=== PATIENT | male | born 1985 | race American Indian/Alaskan Native ===

== ENCOUNTER 2021-03-31 11:12 | Emergency (ER) | payer OTHER ==
[2021-03-31 12:30] VITALS: BP 178/124
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
== END 2021-03-31 13:22 | disposition home or self-care (01) ==
LOC: ED 11:12
DX: M25.511 Pain in right shoulder (principal); M54.50 Low back pain, unspecified; Z91.14 Patient's other noncompliance with medication regimen; Z79.899 Other long term (current) drug therapy
CPT/HCPCS: 99282

== ENCOUNTER 2021-05-23 20:06 | Emergency (ER) | payer SELFPAY ==
--- NOTE | 2021-05-23 22:31 | Emergency Department Report ---
ED General Adult HPI - General Chief complaint: High BP Stated complaint: HIGH BP Source: patient Mode of arrival: Ambulatory Limitations: No Limitations - History of Present Illness Initial comments: Patient is a 36-year-old -Sudanese male with a history of hypertension who is noncompliant with medications presented to the ED via EMS for evaluation of his blood pressure. Patient stated that about 24 hours ago he felt headache and his blood pressure was extremely high with a systolic of over 200. Patient states that he took the blood pressure medication that was previously prescribed for him and for which she has been noncompliant and felt better. Patient however stated that he was scared to go to sleep because of the hypertension, and decided come to the ED today for evaluation. Patient denies chest pain, headache, dizziness, syncope, diaphoresis, nausea and vomiting, palpitation, abdominal pain, neck pain, back pain, fever and chills or change in vision. MD Complaint: Elevated blood pressure -: Sudden, hour(s) (24) Location: head Radiation: non-radiation Severity scale (0 -10): 0 Consistency: intermittent Improves with: medication Worsens with: none Associated Symptoms: denies other symptoms. denies: confusion, chest pain, cough, diaphoresis, fever/chills, headaches, loss of appetite, malaise, nausea/vomiting, rash, seizure, shortness of breath, syncope, weakness Treatments Prior to Arrival: none - Related Data Previous Rx's Medication Instructions Recorded Last Taken Type Naproxen 500 mg PO BID PRN #14 tab 03/31/21 Unknown Rx amLODIPine 5 mg PO DAILY 30 Days #30 tab 03/31/21 Unknown Rx methocarbamoL [Methocarbamol] 750 mg PO TID PRN #20 tab 03/31/21 Unknown Rx Metoprolol [Lopressor] 25 mg PO BID #60 tablet 05/24/21 Unknown Rx Allergies Allergy/AdvReac Type Severity Reaction Status Date / Time No Known Allergies Allergy Verified 05/23/21 21:45 ED Review of Systems ROS: Stated complaint: HIGH BP Other details as noted in HPI Constitutional: other (Elevated blood pressure). denies: chills, fever Eyes: denies: eye pain, eye discharge, vision change ENT: denies: ear pain, throat pain Respiratory: denies: cough, shortness of breath, wheezing Cardiovascular: denies: chest pain, palpitations Endocrine: no symptoms reported Gastrointestinal: denies: abdominal pain, nausea, diarrhea Genitourinary: denies: urgency, dysuria Musculoskeletal: denies: back pain, joint swelling, arthralgia Skin: denies: rash, lesions Neurological: denies: headache, weakness, paresthesias Psychiatric: denies: anxiety, depression Hematological/Lymphatic: denies: easy bleeding, easy bruising ED Past Medical Hx - Past Medical History Previous Medical History?: Yes Hx Hypertension: Yes - Surgical History Past Surgical History?: No - Medications Home Medications: Home Medications Medication Instructions Recorded Confirmed Last Taken Type Naproxen 500 mg PO BID PRN #14 tab 03/31/21 Unknown Rx amLODIPine 5 mg PO DAILY 30 Days #30 tab 03/31/21 Unknown Rx methocarbamoL [Methocarbamol] 750 mg PO TID PRN #20 tab 03/31/21 Unknown Rx Metoprolol [Lopressor] 25 mg PO BID #60 tablet 05/24/21 Unknown Rx ED Physical Exam - General Limitations: No Limitations General appearance: alert, in no apparent distress - Head Head exam: Present: atraumatic, normocephalic, normal inspection - Eye Eye exam: Present: normal appearance, PERRL, EOMI Pupils: Present: normal accommodation - ENT ENT exam: Present: normal exam, normal orophraynx, mucous membranes moist, TM's normal bilaterally, normal external ear exam - Neck Neck exam: Present: normal inspection, full ROM - Respiratory Respiratory exam: Present: normal lung sounds bilaterally. Absent: respiratory distress, wheezes, rales, rhonchi, chest wall tenderness, accessory muscle use, decreased breath sounds - Cardiovascular Cardiovascular Exam: Present: regular rate, normal rhythm, normal heart sounds. Absent: systolic murmur, diastolic murmur, rubs, gallop - GI/Abdominal GI/Abdominal exam: Present: soft, normal bowel sounds. Absent: tenderness, guarding, rebound, hyperactive bowel sounds, hypoactive bowel sounds, organomegaly - Extremities Exam Extremities exam: Present: normal inspection, full ROM, normal capillary refill. Absent: tenderness - Back Exam Back exam: Present: normal inspection, full ROM. Absent: tenderness, CVA tenderness (R), CVA tenderness (L), muscle spasm, paraspinal tenderness - Neurological Exam Neurological exam: Present: alert, oriented X3, CN II-XII intact, normal gait, reflexes normal - Psychiatric Psychiatric exam: Present: normal affect, normal mood, anxious - Skin Skin exam: Present: warm, dry, intact, normal color. Absent: rash ED Course Vital Signs 05/23/21 05/23/21 21:40 23:08 Temperature 98.3 F Pulse Rate 95 H 80 Respiratory 14 14 Rate Blood Pressure 145/101 152/103 [Right] O2 Sat by Pulse 99 97 Oximetry ED Medical Decision Making - Medical Decision Making This is a 36-year-old -Sudanese male with a history of hypertension who is noncompliant with medications presented to the ED via EMS for evaluation of his blood pressure. Patient stated that about 24 hours ago he felt headache and his blood pressure was extremely high with a systolic of over 200. Patient states that he took the blood pressure medication that was previously prescribed for him and for which she has been noncompliant and felt better. Patient [facility] stated that he was scared to go to sleep because of the hypertension, and decided come to the ED today for evaluation. In the ED, patient is alert and oriented x3 and is not in any distress. Patient's vital signs are stable. Patient was discharged home and advised to continue taking his previously prescribed antihypertensive medications and to follow-up with his primary care physician in 7 to 10 days for reevaluation. Patient was advised return to the ED immediately if symptoms get worse. - Differential Diagnosis Uncontrolled hypertension; noncompliance of medication; anxiety Critical care attestation.: If time is entered above; I have spent that time in minutes in the direct care of this critically ill patient, excluding procedure time. ED Disposition Clinical Impression: Uncontrolled hypertension, stage 1, Anxiety as acute reaction to exceptional stress, Noncompliance with medication regimen Disposition: 01 HOME / SELF CARE / HOMELESS Is pt being admited?: No Does the pt Need Aspirin: No Condition: Stable Instructions: Hypertension, Adult, Abfo-vn-Nuit, Hypertension (ED) Additional Instructions: Take your regular medications as previously prescribed, drink plenty of fluids and follow-up with your primary care physician in 7 to 10 days for reevaluation. Return to the ED immediately if symptoms get worse. Referrals: [facility] [Provider Group] - 7-10 days Time of Disposition: 22:31 Print Language: PORTUGUESE
[2021-05-23 23:10] VITALS: BP 152/103
== END 2021-05-23 23:33 | disposition home or self-care (01) ==
LOC: ED 20:06
DX: I10 Essential (primary) hypertension (principal); F41.1 Generalized anxiety disorder; F43.0 Acute stress reaction; Z91.14 Patient's other noncompliance with medication regimen; Z79.899 Other long term (current) drug therapy
CPT/HCPCS: 99282

== ENCOUNTER 2021-05-24 06:01 | Emergency (ER) | payer SELFPAY ==
--- NOTE | 2021-05-24 08:10 | Emergency Department Report ---
ED General Adult HPI - General Chief complaint: High BP Stated complaint: HIGH BP/DIZZINESS Time Seen by Provider: 05/24/21 07:54 Source: patient Mode of arrival: Ambulatory Limitations: No Limitations - History of Present Illness Initial comments: 36-year-old black male with a past medical history of hypertension presents to the emergency department for evaluation of elevated blood pressure and dizziness. He states that he has had the symptoms for the last few days and they have been intermittent and now he is having shortness of breath and nausea as well. He states that he did not taken his blood pressure medications in a while and then he started back a couple of days ago. He denies chest pain and diaphoresis. Patient was seen here yesterday for same. MD Complaint: Dizziness and elevated blood pressure -: Gradual, days(s) (2-3) Severity scale (0 -10): 0 Consistency: intermittent Associated Symptoms: nausea/vomiting, shortness of breath. denies: confusion, chest pain, cough, diaphoresis, fever/chills, headaches, loss of appetite, malaise, rash, seizure, syncope, weakness - Related Data Previous Rx's Medication Instructions Recorded Last Taken Type Naproxen 500 mg PO BID PRN #14 tab 03/31/21 Unknown Rx amLODIPine 5 mg PO DAILY 30 Days #30 tab 03/31/21 Unknown Rx methocarbamoL [Methocarbamol] 750 mg PO TID PRN #20 tab 03/31/21 Unknown Rx Metoprolol [Lopressor] 25 mg PO BID #60 tablet 05/24/21 Unknown Rx Allergies Allergy/AdvReac Type Severity Reaction Status Date / Time No Known Allergies Allergy Verified 05/23/21 21:45 ED Review of Systems ROS: Stated complaint: HIGH BP/DIZZINESS Other details as noted in HPI Comment: All other systems reviewed and negative Constitutional: denies: chills, fever Eyes: denies: vision change ENT: denies: congestion Respiratory: shortness of breath. denies: cough, SOB with exertion, SOB at rest, wheezing Cardiovascular: denies: chest pain, palpitations, dyspnea on exertion, o rthopnea, edema, syncope, paroxysmal nocturnal dyspnea Gastrointestinal: nausea. denies: abdominal pain, vomiting, diarrhea, hematemesis, melena, hematochezia Genitourinary: denies: urgency, dysuria, frequency, hematuria, discharge Musculoskeletal: denies: back pain Skin: denies: rash, lesions Neurological: denies: headache, weakness, numbness, paresthesias, confusion, ab normal gait, vertigo ED Past Medical Hx - Past Medical History Previous Medical History?: Yes Hx Hypertension: Yes - Surgical History Past Surgical History?: No - Medications Home Medications: Home Medications Medication Instructions Recorded Confirmed Last Taken Type Naproxen 500 mg PO BID PRN #14 tab 03/31/21 Unknown Rx amLODIPine 5 mg PO DAILY 30 Days #30 tab 03/31/21 Unknown Rx methocarbamoL [Methocarbamol] 750 mg PO TID PRN #20 tab 03/31/21 Unknown Rx Metoprolol [Lopressor] 25 mg PO BID #60 tablet 05/24/21 Unknown Rx ED Physical Exam - General Limitations: No Limitations General appearance: alert, in no apparent distress - Head Head exam: Present: atraumatic, normocephalic - Eye Eye exam: Present: normal appearance. Absent: conjunctival injection - Neck Neck exam: Present: normal inspection, full ROM. Absent: tenderness, lymphadenopathy - Respiratory Respiratory exam: Present: normal lung sounds bilaterally. Absent: respiratory distress, wheezes, rales, rhonchi, stridor, chest wall tenderness - Cardiovascular Cardiovascular Exam: Present: tachycardia, normal heart sounds - GI/Abdominal GI/Abdominal exam: Present: soft, normal bowel sounds. Absent: distended, tenderness, guarding, rebound, rigid - Extremities Exam Extremities exam: Present: normal inspection, normal capillary refill. Absent: pedal edema, joint swelling, calf tenderness - Back Exam Back exam: Present: normal inspection. Absent: tenderness, CVA tenderness (R), CVA tenderness (L), vertebral tenderness - Neurological Exam Neurological exam: Present: alert, oriented X3, normal gait, reflexes normal. Absent: motor sensory deficit - Psychiatric Psychiatric exam: Present: normal affect, normal mood - Skin Skin exam: Present: warm, dry, intact, normal color ED Course Vital Signs 05/24/21 05/24/21 05/24/21 06:21 09:41 10:08 Temperature 98.6 F Pulse Rate 103 H 82 75 Respiratory 16 16 Rate Blood Pressure 168/109 Blood Pressure 163/105 162/108 [Right] O2 Sat by Pulse 98 99 Oximetry - Reevaluation(s) Reevaluation #1: 05/24/21 09:45 Denies chest pain, shortness of breath, nausea, vomiting, dizziness, and diaphoresis at this time. ED Medical Decision Making - Lab Data Result diagrams: 05/24/21 08:10 05/24/21 08:10 - EKG Data Interpretation: no acute changes 05/24/21 10:27 Noted to have some ST depression likely demand ischemia from elevated BP and heart rate. - Radiology Data Radiology results: report reviewed interpreted by me: Chest x-ray: FINDINGS: Support devices: None. Heart: Within normal limits. Lungs/pleura: No acute air space or interstitial disease. No pneumothorax. Additional findings: None. IMPRESSION: No acute findings. - Medical Decision Making 36-year-old black male with a past medical history of hypertension presents to the emergency department for evaluation of elevated blood pressure and dizziness. He states that he has had the symptoms for the last few days and they have been intermittent and now he is having shortness of breath and nausea as well. He states that he did not taken his blood pressure medications in a while and then he started back a couple of days ago. He denies chest pain and diaphoresis. Patient was seen here yesterday for same. No acute ischemic changes noted on EKG, but patient noted to have some ST depression likely related to demand ischemia from persistent hypertension and elevated heart rate. Patient will be given 25 mg of Lopressor p.o. in ED and started on Lopressor 25 mg p.o. twice daily at home and advised to follow-up with cardiology. Troponin within normal limits, chest x-ray without any acute findings, and no gross abnormalities noted on labs. Patient continues to deny chest pain, and heart score equal to 2, so patient will be discharged home to follow-up with cardiology. Plan of care reviewed with patient and he verbalized understanding of and agreement with. Critical care attestation.: If time is entered above; I have spent that time in minutes in the direct care of this critically ill patient, excluding procedure time. ED Disposition Clinical Impression: Hypertension Qualifiers: Hypertension type: unspecified Qualified Code(s): I10 - Essential (primary) hypertension Disposition: 01 HOME / SELF CARE / HOMELESS Is pt being admited?: No Does the pt Need Aspirin: No Condition: Stable Instructions: Hypertension, Adult, Styx-[id number]-Vkva, Managing Your Hypertension, Hypertension (ED) Additional Instructions: Take medications as prescribed. Follow-up with cardiology or primary care for further evaluation and management. Return to the emergency department for any concerning symptoms. Prescriptions: Metoprolol [Lopressor] 25 mg PO BID #60 tablet Referrals: MAURICIO DE LUNA MD [Primary Care Provider] - 3-5 Days Forms: Work/School Release Form(ED) Time of Disposition: 09:48 HEART Score - HEART Score History: Slightly suspicious EKG: Non-specific Age: < 45 Risk factors: 1-2 risk factors Troponin: Troponin T < 0.010 ng/mL (0.00-0.029) 05/24/21 08:10 Troponin: < normal limit HEART Score: 2 - Critical Actions Critical Actions: 0-3 pts:0.9-1.7%risk of adverse cardiac event.Candidate for discharge
[2021-05-24] MEDS ORDERED: METOPROLOL TARTRATE 5 MG/5 ML INJ IV ONE (08:29)
--- NOTE | 2021-05-24 08:41 | XRay Report ---
CHEST 2 VIEWS INDICATION: dizziness. COMPARISON: none FINDINGS: Support devices: None. Heart: Within normal limits. Lungs/pleura: No acute air space or interstitial disease. No pneumothorax. Additional findings: None. IMPRESSION: No acute findings. Signer Name: Elier Gibson Jr, MD Signed: 05/24/2021 8:37 AM Workstation Name: [id number]
[2021-05-24 08:44] LABS: Hematocrit 41.1 % (35.5-45.6); Hemoglobin 13.8 gm/dl (11.8-15.2); Mean Corpuscular HGB Conc 34 % (32-34); Mean Corpuscular Volume 92 fl (84-94); Platelet Count 267 K/mm3 (140-440); Red Blood Count 4.46 M/mm3 (3.65-5.03); Red Cell Distribution Width 12.8 % (13.2-15.2)
[2021-05-24 08:52] LABS: Alanine Aminotransferase 77 units/L (7-56); Albumin 4.3 g/dL (3.9-5); BUN/Creatinine Ratio 8; Blood Urea Nitrogen 9 mg/dL (9-20); Calcium 9.4 mg/dL (8.4-10.2); Hemolysis Index 9
[2021-05-24] MEDS ORDERED: METOPROLOL TARTRATE 50 MG TAB PO ONE (09:31)
[2021-05-24 10:09] VITALS: BP 162/108
--- NOTE | 2021-05-27 19:45 | Electrocardiograph Report ---
[facility] Test Date: 2021-05-24 Test Time: 08:21:56 Pat Name: ERIC TIMMONS Department: Room: Gender: M [employer]: [place] : 1985 Requested By: LUKAS HOFFMAN Order Number: [id number] Reading MD: Chacha Mancilla Measurements Intervals [place] Rate: 76 P: 73 WV: 125 QRS: 66 QRSD: 78 T: 183 QT: 419 QTc: 472 Interpretive Statements Sinus rhythm LAE, consider biatrial enlargement LVH with secondary repolarization abnormality Consider anterolateral ischemia No previous ECG available for comparison Electronically Signed On 05-27-2021 19:45:05 EDT by Chacha Mancilla
== END 2021-05-24 10:08 | disposition home or self-care (01) ==
LOC: ED 06:01
DX: I10 Essential (primary) hypertension (principal)
CPT/HCPCS: 36415; 71046; 80053; 84484; 85027; 93005; 99283; 99284

== ENCOUNTER 2021-06-16 19:05 | Emergency (ER) | payer SELFPAY ==
[2021-06-16] MEDS ORDERED: METOPROLOL TARTRATE 5 MG/5 ML INJ IV ONE (20:17)
[2021-06-16 20:34] LABS: Basophils % (Auto) 0.6 % (0.0-1.8); Eosinophils # (Auto) 0.3 K/mm3 (0.0-0.4); Eosinophils % (Auto) 3.7 % (0.0-4.3); Hematocrit 39.5 % (35.5-45.6); Hemoglobin 13.1 gm/dl (11.8-15.2); Lymphocytes # (Auto) 2.6 K/mm3 (1.2-5.4); Lymphocytes % (Auto) 36.8 % (13.4-35.0); Mean Corpuscular HGB Conc 33 % (32-34); Mean Corpuscular Volume 93 fl (84-94); Monocytes # (Auto) 0.4 K/mm3 (0.0-0.8); Monocytes % (Auto) 6.4 % (0.0-7.3); Platelet Count 302 K/mm3 (140-440); Red Blood Count 4.27 M/mm3 (3.65-5.03); Red Cell Distribution Width 12.4 % (13.2-15.2)
[2021-06-16 20:55] LABS: Creatine Kinase MB 4.3 ng/mL (0.0-4.0)
[2021-06-16 20:57] LABS: Alanine Aminotransferase 31 units/L (7-56); Albumin 4.2 g/dL (3.9-5); BUN/Creatinine Ratio 9; Blood Urea Nitrogen 11 mg/dL (9-20); Calcium 8.7 mg/dL (8.4-10.2); Hemolysis Index 3
--- NOTE | 2021-06-16 20:57 | XRay Report ---
XR chest 1V ap INDICATION / CLINICAL INFORMATION: Dyspnea COMPARISON: 05/24/2021 FINDINGS: SUPPORT DEVICES: None. HEART / MEDIASTINUM: No significant abnormality. LUNGS / PLEURA: Lungs are clear. Costophrenic sulci are sharp. No pneumothorax. ADDITIONAL FINDINGS: No significant additional findings. IMPRESSION: 1. No acute findings. Signer Name: Seamus Mathias MD Signed: 06/16/2021 8:53 PM Workstation Name: [id number]
[2021-06-16 22:06] LABS: Bilirubin,Urine NEG (Negative); Blood,Urine NEG (Negative); Color,Urine Yellow (Yellow)
[2021-06-16 22:15] LABS: RBC,Urine < 1.0 /HPF (0.0-6.0); WBC,Urine < 1.0 /HPF (0.0-6.0)
[2021-06-16 22:16] LABS: Amphetamine Screen,Urine Negative; Benzodiazepines Screen,Urine Negative; Cannabinoid Screen,Urine Negative; Methadone Screen,Urine Negative; Opiate Screen,Urine Negative
[2021-06-16 22:52] LABS: Cocaine Screen,Urine Negative
--- NOTE | 2021-06-16 23:14 | Emergency Department Report ---
ED General Adult HPI - General Chief complaint: High BP Stated complaint: HBP Time Seen by Provider: 06/16/21 20:11 Source: EMS Mode of arrival: Ambulatory Limitations: No Limitations - History of Present Illness Initial comments: pt has been taking his uncle's blood pressure medication that is not working, pt c/o dizziness, feeling "light headed" upon standing, denies MORRISON - pt ambulatory to EMS, EMS states possible ETOH -: Gradual, days(s) Severity scale (0 -10): 7 Improves with: none, immobilization Associated Symptoms: denies: denies other symptoms, confusion, chest pain, cough - Related Data Previous Rx's Medication Instructions Recorded Last Taken Type Naproxen 500 mg PO BID PRN #14 tab 03/31/21 Unknown Rx amLODIPine 5 mg PO DAILY 30 Days #30 tab 03/31/21 Unknown Rx methocarbamoL [Methocarbamol] 750 mg PO TID PRN #20 tab 03/31/21 Unknown Rx Metoprolol [Lopressor] 25 mg PO BID #60 tablet 05/24/21 Unknown Rx amLODIPine 10 mg PO DAILY #30 tab 06/16/21 Unknown Rx Allergies Allergy/AdvReac Type Severity Reaction Status Date / Time No Known Allergies Allergy Verified 05/23/21 21:45 ED Review of Systems ROS: Stated complaint: HBP Other details as noted in HPI Constitutional: denies: chills, fever Eyes: denies: eye pain, eye discharge, vision change ENT: denies: ear pain, throat pain Respiratory: denies: cough, shortness of breath, wheezing Cardiovascular: denies: chest pain, palpitations Endocrine: no symptoms reported Gastrointestinal: denies: abdominal pain, nausea, diarrhea Genitourinary: denies: urgency, dysuria Musculoskeletal: denies: back pain, joint swelling, arthralgia Skin: denies: rash, lesions Neurological: denies: headache, weakness, paresthesias Psychiatric: denies: anxiety, depression Hematological/Lymphatic: denies: easy bleeding, easy bruising ED Past Medical Hx - Past Medical History Hx Hypertension: Yes - Social History Smoking Status: Current Every Day Smoker Substance Use Type: None - Medications Home Medications: Home Medications Medication Instructions Recorded Confirmed Last Taken Type Naproxen 500 mg PO BID PRN #14 tab 03/31/21 Unknown Rx amLODIPine 5 mg PO DAILY 30 Days #30 tab 03/31/21 Unknown Rx methocarbamoL [Methocarbamol] 750 mg PO TID PRN #20 tab 03/31/21 Unknown Rx Metoprolol [Lopressor] 25 mg PO BID #60 tablet 05/24/21 Unknown Rx amLODIPine 10 mg PO DAILY #30 tab 06/16/21 Unknown Rx ED Physical Exam - General Limitations: No Limitations General appearance: alert, in no apparent distress - Head Head exam: Present: atraumatic, normocephalic - Eye Eye exam: Present: normal appearance - ENT ENT exam: Present: mucous membranes moist - Neck Neck exam: Present: normal inspection - Respiratory Respiratory exam: Present: normal lung sounds bilaterally. Absent: respiratory distress - Cardiovascular Cardiovascular Exam: Present: regular rate, normal rhythm. Absent: systolic murmur, diastolic murmur, rubs, gallop - GI/Abdominal GI/Abdominal exam: Present: soft, normal bowel sounds - Rectal Rectal exam: Present: deferred - Extremities Exam Extremities exam: Present: normal inspection - Back Exam Back exam: Present: normal inspection - Neurological Exam Neurological exam: Present: alert, oriented X3 - Psychiatric Psychiatric exam: Present: normal affect, normal mood - Skin Skin exam: Present: warm, dry, intact, normal color. Absent: rash ED Course Vital Signs 06/16/21 06/16/21 06/16/21 19:35 20:46 21:01 Temperature 98.9 F Pulse Rate 107 H 85 87 Respiratory 16 16 31 H Rate Blood Pressure 173/118 132/89 Blood Pressure [Right] O2 Sat by Pulse 99 97 Oximetry 06/16/21 06/16/21 06/16/21 21:11 21:12 21:15 Temperature 99.0 F Pulse Rate 87 93 H Respiratory 32 H 32 H 26 H Rate Blood Pressure 141/91 Blood Pressure 132/89 [Right] O2 Sat by Pulse 100 100 97 Oximetry 06/16/21 06/16/21 06/16/21 21:31 21:45 21:55 Temperature 99.0 F Pulse Rate 92 H 88 88 Respiratory 20 24 24 Rate Blood Pressure 149/96 139/91 139/91 Blood Pressure [Right] O2 Sat by Pulse 97 97 97 Oximetry ED Medical Decision Making - Lab Data Result diagrams: 06/16/21 20:20 06/16/21 20:20 - EKG Data -: EKG Interpreted by Oh EKG shows normal: sinus rhythm Rate: normal - EKG Data Interpretation: LVH - Radiology Data Radiology results: pending, report reviewed, image reviewed - Medical Decision Making work up unremarkable , lopressor given BP is better , will increase is amlodpine to 10 mg a day Critical care attestation.: If time is entered above; I have spent that time in minutes in the direct care of this critically ill patient, excluding procedure time. ED Disposition Clinical Impression: Uncontrolled hypertension Disposition: HOME / SELF CARE / HOMELESS Is pt being admited?: No Does the pt Need Aspirin: No Condition: Stable Instructions: Hypertension (ED), Hypertension, Adult, Cgyp-on-Apxl
[2021-06-16 23:57] VITALS: BP 140/77
--- NOTE | 2021-06-17 10:49 | Electrocardiograph Report ---
[facility] Test Date: 2021-06-16 Test Time: 21:26:52 Pat Name: ERIC TIMMONS Department: Room: Gender: M Recovery Room Rn: CHANTEL : 1985 Requested By: YAS HOYT Order Number: [id number] Reading MD: Jamil Perea Measurements Intervals [place] Rate: 87 P: 59 DC: 139 QRS: 54 QRSD: 78 T: 205 QT: 365 QTc: 438 Interpretive Statements Sinus rhythm Atrial premature complex Probable left atrial enlargement Probable LVH with secondary repol abnrm Compared to ECG 05/24/2021 08:21:56 Atrial premature complex(es) now present Possible ischemia no longer present Electronically Signed On 06-17-2021 10:48:59 EDT by Jamil Perea
== END 2021-06-16 23:59 | disposition home or self-care (01) ==
LOC: ED 19:05
DX: I10 Essential (primary) hypertension (principal); F17.200 Nicotine dependence, unspecified, uncomplicated; Z79.899 Other long term (current) drug therapy
CPT/HCPCS: 36415; 71045; 80053; 80307; 81001; 82550; 82553; 83690; 84484; 85025; 93005; 96374; 99284

== ENCOUNTER 2021-07-12 00:33 | Emergency (ER) | payer SELFPAY ==
[2021-07-12] MEDS ORDERED: cloNIDine 0.2 MG TAB PO ONE (00:47)
--- NOTE | 2021-07-12 00:59 | Emergency Department Report ---
HPI - General Chief Complaint: High BP Time Seen by Provider: 07/12/21 00:45 - HPI HPI: Room 25 The patient is a 36-year-old male present with a chief complaint of "my blood pressure spiked up." The patient states he began to feel dizzy so he checked h is blood pressure and got a systolic of 214. Patient states he developed some numbness in his left upper extremity which has since improved and now only involves his left shoulder. Patient denied ever having chest pain or headache states he had dizziness. Patient states he has been intermittently compliant with his amlodipine. ED Past Medical Hx - Past Medical History Previous Medical History?: Yes Hx Hypertension: Yes - Surgical History Past Surgical History?: No - Family History Family history: no significant - Social History Smoking Status: Current Every Day Smoker (2/3 pack/day) Substance Use Type: None (Denies illicit drug use), Alcohol (Occasional) - Medications Home Medications: Home Medications Medication Instructions Recorded Confirmed Last Taken Type Naproxen 500 mg PO BID PRN #14 tab 03/31/21 Unknown Rx amLODIPine 5 mg PO DAILY 30 Days #30 tab 03/31/21 Unknown Rx methocarbamoL [Methocarbamol] 750 mg PO TID PRN #20 tab 03/31/21 Unknown Rx Metoprolol [Lopressor] 25 mg PO BID #60 tablet 05/24/21 Unknown Rx amLODIPine 10 mg PO DAILY #30 tab 06/16/21 Unknown Rx ED Review of Systems ROS: Stated complaint: HYPERTENSION Other details as noted in HPI Constitutional: no symptoms reported Eyes: denies: eye pain ENT: denies: throat pain Respiratory: no symptoms reported Cardiovascular: denies: chest pain Endocrine: no symptoms reported Gastrointestinal: denies: nausea, vomiting Genitourinary: denies: dysuria Musculoskeletal: denies: back pain Neurological: paresthesias, other (Dizziness). denies: headache Physical Exam - Physical Exam Vital Signs: Vital Signs 07/12/21 07/12/21 00:39 00:52 Temperature 98.5 F Pulse Rate 88 Respiratory 18 Rate Blood Pressure 173/116 173/116 O2 Sat by Pulse 99 Oximetry Physical Exam: GENERAL: The patient is well-developed well-nourished male lying on stretcher not appearing to be in acute distress. [] HEENT: Normocephalic. Atraumatic. Extraocular motions are intact. Patient has moist mucous membranes. NECK: Supple. No meningitic signs are noted. Trachea midline CHEST/LUNGS: Clear to auscultation. There is no respiratory distress noted. HEART/CARDIOVASCULAR: Regular. There is no tachycardia. There is no gallop rub or murmur. ABDOMEN: Abdomen is soft, nontender. Patient has normal bowel sounds. There is no abdominal distention. SKIN: There is no rash. There is no edema. There is no diaphoresis. NEURO: The patient is awake, alert, and oriented. The patient is cooperative. The patient has no focal neurologic deficits. The patient has normal speech. Cranial nerves II through XII grossly intact. GCS 15. Normal sensation to light touch equal bilaterally. NIHSS=0 MUSCULOSKELETAL: There is no evidence of acute injury. ED Course Vital Signs 07/12/21 07/12/21 00:39 00:52 Temperature 98.5 F Pulse Rate 88 Respiratory 18 Rate Blood Pressure 173/116 173/116 O2 Sat by Pulse 99 Oximetry - Reevaluation(s) Reevaluation #1: 07/12/21 04:07 Patient states he feels improved ED Medical Decision Making - Lab Data Result diagrams: 07/12/21 02:15 07/12/21 02:15 - EKG Data -: EKG Interpreted by Ar EKG shows normal: sinus rhythm Rate: normal (81 bpm) - EKG Data When compared to previous EKG there are: no significant change Interpretation: unchanged when compared t (06/16/2021), LVH - Radiology Data Radiology results: report reviewed (CT head), image reviewed (CT head) [facility] [address] [place] [address] Cat Scan Report Signed Patient: ERIC TIMMONS MR#: [id number] : 1985 Acct:[id number] Age/Sex: 36 / M ADM Date: 07/12/21 Loc: ED Attending Dr: Ordering Physician: MARYLIN MORALES MD Date of Service: 07/12/21 Procedure(s): CT head/brain wo con Accession Number(s): [id number] cc: MARYLIN MORALES MD CT HEAD WITHOUT CONTRAST INDICATION / CLINICAL INFORMATION: Hypertension, dizziness, left shoulder numbness. TECHNIQUE: CT head was performed without adm inistration of intravenous contrast. All CT scans at this location are performed using CT dose reduction for ALARA by means of automated exposure control. COMPARISON: None available. FINDINGS: CEREBRAL HEMISPHERES: There is no evidence of large territorial infarction or significant abnormality of mcqueen-white matter differentiation. Ventricles within normal limits. No midline shift. Basal cisterns patent. HEMORRHAGE: None. CEREBELLUM / BRAINSTEM: No significant abnormality. ORBITS: No significant abnormality. SOFT TISSUES: No significant abnormality. SKULL: No significant abnormality. PARANASAL SINUSES / MASTOID AIR CELLS: Negative. Retention cyst and/or mucoperiosteal thickening of the left m axillary sinus as well as. The bilateral anterior and posterior ethmoid air cells. ADDITIONAL FINDINGS: None. IMPRESSION: 1. No acute intracranial abnormality. Signer Name: Linda Burks II, MD Signed: 07/12/2021 2:02 AM Workstation Name: [id number] Transcribed By: KARINA Dictated By: LINDA BURKS II, MD Electronically Authenticated By: LINDA BURKS II, MD Signed Date/Time: 07/12/21201 DD/ 0 TD/TT: - Differential Diagnosis Hypertensive urgency, hypertensive emergency, ACS, Critical care attestation.: If time is entered above; I have spent that time in minutes in the direct care of this critically ill patient, excluding procedure time. ED Disposition Clinical Impression: Hypertensive urgency Disposition: 01 HOME / SELF CARE / HOMELESS Is pt being admited?: No Does the pt Need Aspirin: No Condition: Stable Instructions: Managing Your Hypertension, Hypertension, Adult, [id number] Additional Instructions: Return to the emergency department should you develop worsening symptoms, inability to tolerate food or liquids, high fever or any other concerns Referrals: [facility] [Provider Group] - 3-5 Days Time of Disposition: 04:07
--- NOTE | 2021-07-12 02:06 | Cat Scan Report ---
CT HEAD WITHOUT CONTRAST INDICATION / CLINICAL INFORMATION: Hypertension, dizziness, left shoulder numbness. TECHNIQUE: CT head was performed without administration of intravenous contrast. All CT scans at this location are performed using CT dose reduction for ALARA by means of automated exposure control. COMPARISON: None available. FINDINGS: CEREBRAL HEMISPHERES: There is no evidence of large territorial infarction or significant abnormality of mcqueen-white matter differentiation. Ventricles within normal limits. No midline shift. Basal ciste rns patent. HEMORRHAGE: None. CEREBELLUM / BRAINSTEM: No significant abnormality. ORBITS: No significant abnormality. SOFT TISSUES: No significant abnormality. SKULL: No significant abnormality. PARANASAL SINUSES / MASTOID AIR CELLS: Negative. Retention cyst and/or mucoperiosteal thickening of t he left maxillary sinus as well as. The bilateral anterior and posterior ethmoid air cells. ADDITIONAL FINDINGS: None. IMPRESSION: 1. No acute intracranial abnormality. Signer Name: Noé Chun II, MD Signed: 07/12/2021 2:02 AM Workstation Name: [id number]
[2021-07-12 02:52] LABS: Basophils % (Auto) 0.7 % (0.0-1.8); Eosinophils # (Auto) 0.1 K/mm3 (0.0-0.4); Hematocrit 37.6 % (35.5-45.6); Hemoglobin 12.8 gm/dl (11.8-15.2); Lymphocytes # (Auto) 1.5 K/mm3 (1.2-5.4); Mean Corpuscular HGB Conc 34 % (32-34); Mean Corpuscular Volume 92 fl (84-94); Monocytes # (Auto) 0.4 K/mm3 (0.0-0.8); Monocytes % (Auto) 6.8 % (0.0-7.3); Platelet Count 283 K/mm3 (140-440); Red Cell Distribution Width 12.4 % (13.2-15.2)
[2021-07-12 03:19] LABS: Creatine Kinase MB 5.1 ng/mL (0.0-4.0)
[2021-07-12 03:20] LABS: BUN/Creatinine Ratio 10; Blood Urea Nitrogen 10 mg/dL (9-20); Hemolysis Index 1
[2021-07-12 04:03] VITALS: BP 151/101
--- NOTE | 2021-07-12 20:16 | Electrocardiograph Report ---
[facility] Test Date: 2021-07-12 Test Time: 01:35:24 Pat Name: ERIC TIMMONS Department: Room: Gender: M [employer] Et[employer] Developer: ELADIO : 1985 Requested By: MARYLIN MORALES Order Number: [id number] Reading MD: Jamil Perea Measurements Intervals [place] Rate: 81 P: 59 [place]: 133 QRS: 44 QRSD: 77 T: 108 QT: 393 QTc: 457 Interpretive Statements Sinus rhythm Probable left atrial enlargement Left ventricular hypertrophy Nonspecific T abnormalities, lateral leads Compared to ECG 06/16/2021 21:26:52 T-wave abnormality now present Atrial premature complex(es) no longer present Electronically Signed On 07-12-2021 20:15:59 EDT by Jamil Perea
== END 2021-07-12 04:26 | disposition home or self-care (01) ==
LOC: ED 00:33
DX: I16.0 Hypertensive urgency (principal); F17.210 Nicotine dependence, cigarettes, uncomplicated; Z72.89 Other problems related to lifestyle
CPT/HCPCS: 36415; 70450; 80048; 80320; 82550; 82553; 84484; 85025; 93005; 99284; G0480

== ENCOUNTER 2021-09-27 00:44 | Emergency (ER) | payer SELFPAY ==
--- NOTE | 2021-09-27 03:09 | Emergency Department Report ---
ED Dizziness HPI - General Chief Complaint: High BP Stated Complaint: HYPERTENSION Time Seen by Provider: 09/27/21 02:54 Source: patient, EMS Mode of arrival: Stretcher Limitations: No Limitations - History of Present Illness Initial Comments: 36-year-old male with a history of hypertension presenting to the emergency department complaining dizziness, left arm paresthesia and weakness since approximately midnight. Patient checked his blood pressure at the time and it was 197/120, so he took 20 mg of amlodipine and came to the emergency department, because he was concerned that he may be having a stroke. His blood pressure has improved, but he says that he is still dizzy and still has the other symptoms, though they have improved. Patient denies headache, chest pain, shortness of breath, abdominal pain, or other symptoms. Patient does report previous elevations that has blood pressure, but denies previous neurological symptoms. Patient reports that he is noncompliant with his medications for hypertension, but does have a prescription for the amlodipine, but is about to run out of his metoprolol. Denies known aggravating or alleviating factors. - Related Data Previous Rx's Medication Instructions Recorded Last Taken Type Naproxen 500 mg PO BID PRN #14 tab 03/31/21 Unknown Rx amLODIPine 5 mg PO DAILY 30 Days #30 tab 03/31/21 Unknown Rx methocarbamoL [Methocarbamol] 750 mg PO TID PRN #20 tab 03/31/21 Unknown Rx amLODIPine 10 mg PO DAILY #30 tab 06/16/21 Unknown Rx amLODIPine 10 mg PO DAILY #30 tab 07/12/21 Unknown Rx Metoprolol [Lopressor TAB] 25 mg PO BID #60 tablet 09/27/21 Unknown Rx Allergies Allergy/AdvReac Type Severity Reaction Status Date / Time No Known Allergies Allergy Verified 05/23/21 21:45 ED Review of Systems ROS: Stated complaint: HYPERTENSION Other details as noted in HPI Comment: All other systems reviewed and negative Constitutional: weakness. denies: chills, fever Eyes: denies: eye pain, eye discharge, vision change ENT: denies: ear pain, throat pain Respiratory: denies: cough, shortness of breath, wheezing Cardiovascular: denies: chest pain, palpitations Endocrine: no symptoms reported Gastrointestinal: denies: abdominal pain, nausea, diarrhea Genitourinary: denies: urgency, dysuria Musculoskeletal: denies: back pain, joint swelling, arthralgia Skin: denies: rash, lesions Neurological: weakness (Left hand), paresthesias (Left arm and shoulder), verti go. denies: headache Psychiatric: denies: anxiety, depression Hematological/Lymphatic: denies: easy bleeding, easy bruising ED Past Medical Hx - Past Medical History Previous Medical History?: Yes Hx Hypertension: Yes - Surgical History Past Surgical History?: No - Social History Smoking Status: Never Smoker Substance Use Type: None - Medications Home Medications: Home Medications Medication Instructions Recorded Confirmed Last Taken Type Naproxen 500 mg PO BID PRN #14 tab 03/31/21 Unknown Rx amLODIPine 5 mg PO DAILY 30 Days #30 tab 03/31/21 Unknown Rx methocarbamoL [Methocarbamol] 750 mg PO TID PRN #20 tab 03/31/21 Unknown Rx amLODIPine 10 mg PO DAILY #30 tab 06/16/21 Unknown Rx amLODIPine 10 mg PO DAILY #30 tab 07/12/21 Unknown Rx Metoprolol [Lopressor TAB] 25 mg PO BID #60 tablet 09/27/21 Unknown Rx ED Physical Exam - General Limitations: No Limitations General appearance: alert, in no apparent distress - Head Head exam: Present: atraumatic, normocephalic - Eye Eye exam: Present: normal appearance - ENT ENT exam: Present: mucous membranes moist - Neck Neck exam: Present: normal inspection, other (No carotid bruit) - Respiratory Respiratory exam: Present: normal lung sounds bilaterally. Absent: respiratory distress - Cardiovascular Cardiovascular Exam: Present: regular rate, normal rhythm. Absent: systolic murmur, diastolic murmur, rubs, gallop - GI/Abdominal GI/Abdominal exam: Present: soft, normal bowel sounds - Rectal Rectal exam: Present: deferred - Extremities Exam Extremities exam: Present: normal inspection, full ROM. Absent: calf tenderness - Back Exam Back exam: Present: normal inspection - Neurological Exam Neurological exam: Present: alert, oriented X3, CN II-XII intact, normal gait, motor sensory deficit (Slightly decreased sensation in the left shoulder) - Psychiatric Psychiatric exam: Present: normal affect, normal mood - Skin Skin exam: Present: warm, dry, intact, normal color. Absent: rash ED Course Vital Signs 09/27/21 09/27/21 09/27/21 00:45 02:29 03:40 Temperature 98 F 97.0 F L Pulse Rate 77 81 87 Respiratory 18 18 15 Rate Blood Pressure 171/108 Blood Pressure 161/91 167/103 [Left] O2 Sat by Pulse 97 100 98 Oximetry 09/27/21 03:41 Temperature Pulse Rate Respiratory Rate Blood Pressure Blood Pressure [Left] O2 Sat by Pulse 98 Oximetry - Reevaluation(s) Reevaluation #1: 09/27/21 03:14 Case was discussed with telemetry neurology (Dr. Mullen at [phone]) he will discuss with the patient and returned a phone call with recommendations. Reevaluation #2: 09/27/21 04:44 Patient was evaluated at bedside by the telemetry neurologist that with the symptoms quickly resolving with improvement of the blood pressure, that the patient likely has hypertensive emergency, and can be discharged home with blood pressure medications and to follow-up with a primary care doctor. ED Medical Decision Making - Lab Data Result diagrams: 09/27/21 03:32 09/27/21 03:32 - Differential Diagnosis Hypertensive emergency, TIA, stroke, anxiety Critical care attestation.: If time is entered above; I have spent that time in minutes in the direct care of this critically ill patient, excluding procedure time. ED Disposition Clinical Impression: Hypertensive encephalopathy Disposition: 01 HOME / SELF CARE / HOMELESS Is pt being admited?: No Does the pt Need Aspirin: No Condition: Stable Instructions: Dizziness, Hypertension, Adult Prescriptions: Metoprolol [Lopressor TAB] 25 mg PO BID #60 tablet Referrals: CRISTÓBAL APODACA MD [Staff Physician] - 3-5 Days Time of Disposition: 04:47
--- NOTE | 2021-09-27 03:46 | Cat Scan Report ---
CT HEAD WITHOUT CONTRAST INDICATION / CLINICAL INFORMATION: CODE STROKE, LKW 3HRS AGO, LEFT SIDE WEAKNESS AND AMS, [id number]. TECHNIQUE: All CT scans at this location are performed using CT dose reduction for ALARA by means of automated e xposure control. COMPARISON: 07/12/2021 FINDINGS: No acute intracranial hemorrhage. Ventricles are normal in size without midline shift or mass effect. 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 No evidence for large territorial infarct. No midline shift or mass effect. Sinuses are clear ADDITIONAL FINDINGS: None. IMPRESSION: 1. No significant interval change since 07/12/2021 Signer Name: Karri Plata MD Signed: 09/27/2021 3:42 AM Workstation Name: [id number]
[2021-09-27 03:55] LABS: Basophils % (Auto) 0.4 % (0.0-1.8); Eosinophils # (Auto) 0.3 K/mm3 (0.0-0.4); Eosinophils % (Auto) 3.9 % (0.0-4.3); Hematocrit 39.2 % (35.5-45.6); Lymphocytes # (Auto) 1.4 K/mm3 (1.2-5.4); Lymphocytes % (Auto) 19.8 % (13.4-35.0); Mean Corpuscular HGB Conc 33 % (32-34); Mean Corpuscular Volume 94 fl (84-94); Monocytes # (Auto) 0.5 K/mm3 (0.0-0.8); Monocytes % (Auto) 6.9 % (0.0-7.3); Platelet Count 265 K/mm3 (140-440); Red Blood Count 4.16 M/mm3 (3.65-5.03); Red Cell Distribution Width 13.7 % (13.2-15.2)
--- NOTE | 2021-09-27 03:56 | XRay Report ---
CHEST 1 VIEW 09/27/2021 3:36 AM INDICATION / CLINICAL INFORMATION: left arm paresthesias and dizziness. COMPARISON: 06/16/2021 FINDINGS: SUPPORT DEVICES: None. HEART / MEDIASTINUM: No significant abnormality. LUNGS / PLEURA: No significant pulmonary or pleural abnormality. No pneumothorax. ADDITIONAL FINDINGS: No significant additional findings. IMPRESSION: 1. No acute findings. Signer Name: Karri Plata MD Signed: 09/27/2021 3:52 AM Workstation Name: [id number]
--- NOTE | 2021-09-27 03:59 | Cat Scan Report ---
CTA HEAD AND NECK WITH CONTRAST HISTORY: Left-sided weakness COMPARISON: Head CT done earlier today TECHNIQUE: All CT scans at this location are performed using CT dose reduction for ALARA by means of automated exposure control.. 3-D/MIP reformats postprocessed. Percentage stenosis is determined by d irect quantitative measurements of diseased internal carotid artery diameter compared with normal dis yulissa internal carotid artery reference segments or by criteria similar to NASCET where applicable. CONTRAST: 100 ml of Omnipaque 350 FINDINGS: CT HEAD: BRAIN / INTRACRANIAL CONTENTS: No acute hemorrhage, mass effect, midline shift, or hydrocephalus. No appreciable acute large territorial or lacunar infarct. ORBITS: No significant abnormality of visualized orbits. SINUSES / MASTOIDS: No significant abnormality of visualized sinuses and mastoid air cells. CTA HEAD: Intracranial vertebral arteries: No significant abnormality. Basilar artery: No significant abnormality. Posterior cerebral arteries: No significant abnormality. Intracranial internal carotid arteries: Atherosclerotic plaque in the bilateral carotid siphons witho ut flow-limiting stenosis. Anterior cerebral arteries: No significant abnormality. Middle cerebral arteries: No significant abnormality. Dural venous sinuses:Not optimally opacified. No significant abnormality. CTA NECK: Aortic arch: No significant abnormality. Cervical vertebral arteries: No significant abnormality. Common carotid arteries: No significant abnormality. Cervical internal carotid arteries: No significant abnormality. Additional findings: None. IMPRESSION: 1. No flow-limiting stenosis or large vessel occlusion in the neck or intracranial arteries. Signer Name: Jaylon Esparza MD Signed: 09/27/2021 3:55 AM Workstation Name: [id number]
--- NOTE | 2021-09-27 04:02 | Emergency Department Report ---
Blank Doc - Documentation Documentation: [facility] Consult Note # Demographics Consult Type: Acute Stroke Level 1 (0-4.5 hrs) Patient Location: Emergency Room First Name: Pedro Last Name: Jb Date of : 1985 Age: 36 Gender: Male Facility: [facility] Time of Initial Page (): 09/27/2021, 03:02 Time of Return Call ( Time): 09/27/2021, 03:03 # HPI History: 36 yo man history hypertension, multiple ER visits for hypertension, was about to sleep, started to develop dizziness, numbness and weakness in the left shoulder and arm. The symptoms are improving now that his blood pressure is improving. Patient notes every time his BP goes very high, he starts to feel similar symptoms of weakness/numbness at home. Current smoker. Nearly daily ETOH use. # Scores Time of exam and NIHSS (): 09/27/2021, 03:56 Level of Consciousness 1a: [0] = Alert; keenly responsive LOC Questions 1b: [0] = Answers both questions correctly LOC Commands 1c: [0] = Performs both tasks correctly Best Gaze 2: [0] = Normal Visual 3: [0] = No visual loss Facial Palsy 4: [0] = Normal symmetrical movements Motor Arm Left 5a: [0] = No drift Motor Arm Right 5b: [0] = No drift Motor Leg Left 6a: [0] = No drift Motor Leg Right 6b: [0] = No drift Limb Ataxia 7: [0] = Absent Sensory 8: [1] = [id number] sensory loss Best Language 9: [0] = No aphasia Dysarthria 10: [0] = Normal Extinction and Inattention 11: [0] = No abnormality NIHSS Total: 1 # Exam Additional Neurologic Exam: mild left hand tingling. # Data Time Head CT personally read by me (): 09/27/2021, 03:[address]: no bleed preliminary read CTA Head: no large vessel occlusion preliminarily reviewed by me, please refer to radiology read for official reading CTA Neck: patent vessels preliminarily reviewed by me, please refer to radiology read for official reading # Assessment Impression: hypertensive emergency. improving left arm numbness and dizziness low suspicion of stroke. # Plan Thrombolytic/Intervention: NOT IV Thrombolysis or IA Intervention candidate Thrombolytic Exclusion (< 3 hour window): Individualized disability discussion had with the patient and/or family, and they have determined the current deficits to be non-disabling and do not wish to proceed with thrombolytic Intraarterial Exclusion: no large vessel occlusion (LVO) Target Blood Pressure: SBP < 180 Labs: CBC comprehensive metabolic panel lipid panel troponin TSH urine drug screen ua Other: If patient has any neurological deterioration please call me back immediately I have discussed my recommendations with the referring provider Additional Recommendations: treat for hypertensive emergency, restart home BP meds. Decrease SBP by about 25% now and continue to decrease to normal BP over 24 h. risk factor modification. consider work up for secondary hypertension if not already done. If returns to baseline, no further work from neurology. No mri needed if returns to baseline. Disposition: observation # Logistics Telemedicine: Interactive 2 way audio and visual telecommunication technology was utilized during this visit # Demographics First Name: Pedro Last Name: Jb Facility: [facility]
[2021-09-27 04:03] LABS: INR 0.95 (0.87-1.13)
[2021-09-27 04:04] LABS: Creatine Kinase MB 7.7 ng/mL (0.0-4.0); Partial Thromboplastin Time 28.3 Sec. (24.2-36.6); Thrombin Time 15.4 Sec. (15.1-19.6)
[2021-09-27 04:05] LABS: Alanine Aminotransferase 39 units/L (7-56); BUN/Creatinine Ratio 10; Blood Urea Nitrogen 11 mg/dL (9-20); Calcium 8.5 mg/dL (8.4-10.2); Hemolysis Index 76
[2021-09-27] MEDS ORDERED: METOPROLOL TARTRATE 50 MG TAB PO ONE (04:45)
[2021-09-27 05:28] VITALS: BP 155/95
--- NOTE | 2021-09-27 16:11 | Electrocardiograph Report ---
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
== END 2021-09-27 05:27 | disposition home or self-care (01) ==
LOC: ED 00:44
DX: I67.4 Hypertensive encephalopathy (principal); Z79.899 Other long term (current) drug therapy; R79.1 Abnormal coagulation profile
CPT/HCPCS: 36415; 70450; 70496; 70498; 71045; 80053; 82550; 82553; 82962; 84484; 85025; 85610; 85670; 85730; 93005; 99285; Q9967

== ENCOUNTER 2021-10-12 17:09 | Emergency (ER) | payer SELFPAY ==
[2021-10-12] MEDS ORDERED: traMADol 50 MG TAB PO ONE (22:58)
--- NOTE | 2021-10-12 23:03 | Emergency Department Report ---
Upper Extremity - [facility] Chief Complaint: Extremity Injury, Upper Stated Complaint: SWOLLEN ARM AND HIGH BLOOD PRESSURE Time Seen by Provider: 10/12/21 22:57 Upper Extremity: Left Arm, Left Forearm (Upper arm pain is forearm pain and swelling) Occurred When: 3 Days Mechanism: Unsure Severity: moderate Symptoms: Yes Pain with Movement, Yes Swelling, No Deformity, No Limited Range of Movement, No Numbness, No Weakness, No Bruising/Ecchymosis, No Laceration or Abrasion Other History: Patient 36-year-old male with hx of htn controlled with metoprolol po, who presents for left upper arm pain and swelling for 3 days. Patient states he had an IV in the ED 3 days ago to experience pain and swelling along his forearm and upper arm. There is no erythema no fevers no chills no numbness no tingling no paralysis. Pain is exacerbated by movement and palpation. Pain is relieved by nothing tried. ED Review of Systems ROS: Stated complaint: SWOLLEN ARM AND HIGH BLOOD PRESSURE Other details as noted in HPI Constitutional: denies: chills, fever Eyes: denies: eye pain, eye discharge, vision change ENT: denies: ear pain, throat pain Respiratory: denies: cough, shortness of breath, wheezing Cardiovascular: denies: chest pain, palpitations Endocrine: no symptoms reported Gastrointestinal: denies: abdominal pain, nausea, diarrhea Genitourinary: denies: urgency, dysuria Musculoskeletal: other (Left arm pain is well) Skin: denies: rash, lesions Neurological: denies: headache, weakness, paresthesias Psychiatric: denies: anxiety, depression Hematological/Lymphatic: denies: easy bleeding, easy bruising ED Past Medical Hx - Past Medical History Hx Hypertension: Yes - Social History Smoking Status: Never Smoker Substance Use Type: None - Medications Home Medications: Home Medications Medication Instructions Recorded Confirmed Last Taken Type RX: amLODIPine 5 mg PO DAILY 30 Days #30 tab 03/31/21 Unknown Rx methocarbamoL [Methocarbamol] 750 mg PO TID PRN #20 tab 03/31/21 Unknown Rx RX: amLODIPine 10 mg PO DAILY #30 tab 06/16/21 Unknown Rx RX: amLODIPine 10 mg PO DAILY #30 tab 07/12/21 Unknown Rx RX: Metoprolol [Lopressor TAB] 25 mg PO BID #60 tablet 09/27/21 Unknown Rx RX: Naproxen 500 mg PO BID PRN #30 tab 10/13/21 Unknown Rx Upper Extremity Exam - Exam General: Vital signs noted. No distress. Alert and acting appropriately. Head and Torso: No HEENT Abnormality, No Neck Tenderness, No Chest/Lungs Abnormality, No Abdominal Tenderness, No Back Tenderness Shoulder Exam: Yes Normal Range of Motion in Shoulder, No Shoulder Tenderness, No Clavicle Tenderness, No Shoulder Deformity, No AC Joint Tenderness Arm Exam: Yes Arm/Humerus Tenderness (Left distal humerus pain and swelling), No Arm Deformity Elbow: Yes Normal Range of Motion in Elbow, No Elbow Tenderness, No Elbow Def ormity Forearm: Yes Forearm Tenderness, Yes Pain with Pronation, Yes Pain with Supination, No Forearm Deformity Wrist: Yes Normal ROM in Wrist, No Wrist Tenderness, No Wrist Deformity, No Snuffbox Tenderness, No Pain with Axial Thumb Compression Hand: Yes Normal ROM in Digit(s), No Hand Tenderness, No Hand Deformity, No Dig it Tenderness, No Digit(s) Deformity, No Tendon Dysfunction CMS Exam: Yes Normal Distal Pulses, Yes Normal Capillary Refill, Yes Normal Distal Sensation, No Broken Skin ED Course Vital Signs 10/12/21 20:18 Temperature 98.3 F Pulse Rate 91 H Respiratory 18 Rate Blood Pressure 184/116 [Right] O2 Sat by Pulse 98 Oximetry ED Medical Decision Making - Radiology Data Radiology results: report reviewed, image reviewed eft forearm 2 views INDICATION: Left forearm pain following injury IMPRESSION: Left forearm is intact. Some swelling of the forearm noted. Signer Name: Marc Guidry MD Signed: 10/13/2021 12:00 AM Workstation Name: [id number] Transcribed By: CHERELLE Dictated By: Marc Guidry MD Electronically Authenticated By: Marc Guidry MD Signed Date/Time: 10/13/21 0000 DD/ 0000 TD/TT: Left humerus 2 views INDICATION: Left humerus pain and swelling IMPRESSION: There is swelling of the soft tissue surrounding the humerus. The humerus is intact. 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 No bruit no thrill, minimally fevers no chills no malaise. This is not likely phlebitis. Plan NSAIDs, moist heat therapy, follow-up with your doctor in 2 to 3 days return to emergency department should symptoms worsen. Critical care attestation.: If time is entered above; I have spent that time in minutes in the direct care of this critically ill patient, excluding procedure time. ED Disposition Clinical Impression: Musculoskeletal pain of left upper extremity Disposition: HOME / SELF CARE / HOMELESS Is pt being admited?: No Does the pt Need Aspirin: No Condition: Stable Instructions: Musculoskeletal Pain Additional Instructions: Take medications as prescribed, use moist heat therapy as directed. Follow-up with your doctor in 2 to 3 days. Return to emergency department should symptoms worsen. Prescriptions: RX: Naproxen 500 mg PO BID PRN #30 tab PRN Reason: pain Referrals: ARTURO RODRIGUES MD [Staff Physician] - 3-5 Days Forms: Work/School Release Form(ED) Time of Disposition: 00:25
--- NOTE | 2021-10-13 00:05 | XRay Report ---
Left humerus 2 views INDICATION: Left humerus pain and swelling IMPRESSION: There is swelling of the soft tissue surrounding the humerus. The humerus is intact. Signer Name: Marc Guidry MD Signed: 10/13/2021 12:01 AM Workstation Name: [employer]
--- NOTE | 2021-10-13 00:05 | XRay Report ---
Left forearm 2 views INDICATION: Left forearm pain following injury IMPRESSION: Left forearm is intact. Some swelling of the forearm noted. Signer Name: Marc Guidry MD Signed: 10/13/2021 12:00 AM Workstation Name: [email or web address]
[2021-10-13 01:25] VITALS: BP 174/107
== END 2021-10-13 00:38 | disposition home or self-care (01) ==
LOC: ED 17:09
DX: M79.622 Pain in left upper arm (principal); I10 Essential (primary) hypertension
CPT/HCPCS: 99283

== ENCOUNTER 2021-10-21 15:47 | Emergency (ER) | payer SELFPAY ==
--- NOTE | 2021-10-22 05:38 | XRay Report ---
CHEST 1 VIEW INDICATION / CLINICAL INFORMATION: Dyspnea STUDY TIME: 513 COMPARISON: 09/27/2021 FINDINGS: SUPPORT DEVICES: None HEART / MEDIASTINUM: No significant abnormality. LUNGS / PLEURA: No significant acute pulmonary or pleural abnormality. No pneumothorax. ADDITIONAL FINDINGS: No significant additional findings. Signer Name: Flex العراقي MD Signed: 10/22/2021 5:34 AM Workstation Name: [id number]
[2021-10-22 06:12] LABS: Basophils # (Auto) 0.1 K/mm3 (0.0-0.1); Basophils % (Auto) 0.9 % (0.0-1.8); Eosinophils # (Auto) 0.1 K/mm3 (0.0-0.4); Hematocrit 42.7 % (35.5-45.6); Lymphocytes # (Auto) 2.3 K/mm3 (1.2-5.4); Mean Corpuscular HGB Conc 33 % (32-34); Mean Corpuscular Volume 94 fl (84-94); Monocytes # (Auto) 0.5 K/mm3 (0.0-0.8); Monocytes % (Auto) 7.8 % (0.0-7.3); Platelet Count 288 K/mm3 (140-440); Red Blood Count 4.54 M/mm3 (3.65-5.03)
[2021-10-22 06:19] LABS: INR 0.92 (0.87-1.13)
[2021-10-22 06:30] LABS: Creatine Kinase MB 4.8 ng/mL (0.0-4.0)
[2021-10-22 06:34] LABS: Alanine Aminotransferase 22 units/L (7-56); Albumin 4.1 g/dL (3.9-5); BUN/Creatinine Ratio 14; Blood Urea Nitrogen 13 mg/dL (9-20); Calcium 8.8 mg/dL (8.4-10.2); Hemolysis Index 11
--- NOTE | 2021-10-22 06:47 | Emergency Department Report ---
ED General Adult HPI - General Chief complaint: High BP Stated complaint: BLOOD CLOT,SOB,FACE FEEL TINGLES Time Seen by Provider: 10/22/21 06:42 Source: patient Mode of arrival: Ambulatory Limitations: No Limitations - History of Present Illness Initial comments: Patient is a 36-year-old male presenting to ED with complaint of elevated blood pressure yesterday. He reports systolic blood pressure in the 200s. He reports history of hypertension and takes medication which she is unable to recall the name of. Also reports mild left-sided chest discomfort radiating to his left arm. He presented here and has been waiting for roughly 13 hours prior to being placed in a room. States his symptoms are currently resolved at this time Severity scale (0 -10): 0 - Related Data Previous Rx's Medication Instructions Recorded Last Taken Type amLODIPine 5 mg PO DAILY 30 Days #30 tab 03/31/21 Unknown Rx methocarbamoL [Methocarbamol] 750 mg PO TID PRN #20 tab 03/31/21 Unknown Rx amLODIPine 10 mg PO DAILY #30 tab 06/16/21 Unknown Rx amLODIPine 10 mg PO DAILY #30 tab 07/12/21 Unknown Rx Metoprolol [Lopressor TAB] 25 mg PO BID #60 tablet 09/27/21 Unknown Rx Naproxen 500 mg PO BID PRN #30 tab 10/13/21 Unknown Rx Allergies Allergy/AdvReac Type Severity Reaction Status Date / Time No Known Allergies Allergy Verified 05/23/21 21:45 ED Review of Systems ROS: Stated complaint: BLOOD CLOT,SOB,FACE FEEL TINGLES Other details as noted in HPI Constitutional: denies: chills, fever Respiratory: denies: cough, shortness of breath, wheezing Cardiovascular: chest pain Endocrine: no symptoms reported Gastrointestinal: denies: abdominal pain, nausea, diarrhea Musculoskeletal: denies: back pain, joint swelling, arthralgia Skin: denies: rash, lesions Neurological: denies: headache, weakness, paresthesias Psychiatric: denies: anxiety, depression ED Past Medical Hx - Past Medical History Previous Medical History?: Yes Hx Hypertension: Yes - Surgical History Past Surgical History?: No - Social History Smoking Status: Never Smoker Substance Use Type: None - Medications Home Medications: Home Medications Medication Instructions Recorded Confirmed Last Taken Type amLODIPine 5 mg PO DAILY 30 Days #30 tab 03/31/21 Unknown Rx methocarbamoL [Methocarbamol] 750 mg PO TID PRN #20 tab 03/31/21 Unknown Rx amLODIPine 10 mg PO DAILY #30 tab 06/16/21 Unknown Rx amLODIPine 10 mg PO DAILY #30 tab 07/12/21 Unknown Rx Metoprolol [Lopressor TAB] 25 mg PO BID #60 tablet 09/27/21 Unknown Rx Naproxen 500 mg PO BID PRN #30 tab 10/13/21 Unknown Rx ED Physical Exam - General Limitations: No Limitations General appearance: in no apparent distress, other (Patient sleeping however arousable to voice. Upon awakening states he feels fine.) - Head Head exam: Present: atraumatic, normocephalic - Respiratory Respiratory exam: Present: normal lung sounds bilaterally. Absent: respiratory distress - Cardiovascular Cardiovascular Exam: Present: regular rate, normal rhythm, normal heart sounds - GI/Abdominal GI/Abdominal exam: Present: soft. Absent: distended, tenderness - Rectal Rectal exam: Present: deferred - Neurological Exam Neurological exam: Present: alert, oriented X3, CN II-XII intact - Psychiatric Psychiatric exam: Present: normal affect, normal mood - Skin Skin exam: Present: warm, dry, intact, normal color ED Course Vital Signs 10/21/21 10/21/21 10/22/21 15:54 20:39 00:22 Temperature 98.3 F 98.8 F 99.0 F Pulse Rate 96 H 75 72 Respiratory 18 18 Rate Blood Pressure 205/138 197/128 Blood Pressure 218/149 [Right] O2 Sat by Pulse 96 97 99 Oximetry 10/22/21 10/22/21 10/22/21 03:00 05:14 06:07 Temperature 97.6 F Pulse Rate 67 78 Respiratory 17 14 Rate Blood Pressure Blood Pressure 188/121 158/103 [Right] O2 Sat by Pulse 100 99 97 Oximetry 10/22/21 07:46 Temperature Pulse Rate 72 Respiratory 13 Rate Blood Pressure 167/119 Blood Pressure [Right] O2 Sat by Pulse 100 Oximetry ED Medical Decision Making - Lab Data Result diagrams: 10/22/21 05:33 10/22/21 05:33 - EKG Data -: EKG Interpreted by Vt EKG shows normal: sinus rhythm, axis, intervals, QRS complexes Rate: normal - EKG Data When compared to previous EKG there are: other (Inverted T waves in lateral leads) - Medical Decision Making Patient given 20 mg of IV labetalol. Blood pressure is currently 150s over 100s. Chest x-ray shows no acute abnormality. CBC, CMP and troponin are grossly unremarkable. Patient currently denies any chest pain. Heart score is 3. Patient stable for discharge home with PCP follow-up. Critical care attestation.: If time is entered above; I have spent that time in minutes in the direct care of this critically ill patient, excluding procedure time. ED Disposition Clinical Impression: Acute nonspecific chest pain with low risk of coronary artery disease Disposition: 01 HOME / SELF CARE / HOMELESS Is pt being admited?: No Condition: Stable Instructions: Chest Pain (ED), Nonspecific Chest Pain, Adult Additional Instructions: Please follow-up with your regular doctor within 1 to 2 weeks. You may return if your symptoms worsen/return prior to then. Referrals: MAURICIO DE LUNA MD [Primary Care Provider] - 3-5 Days Time of Disposition: 08:32
[2021-10-22 08:59] VITALS: BP 169/106
--- NOTE | 2021-10-22 10:58 | Electrocardiograph Report ---
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
== END 2021-10-22 09:23 | disposition home or self-care (01) ==
LOC: ED 15:47
DX: R07.9 Chest pain, unspecified (principal); I10 Essential (primary) hypertension
CPT/HCPCS: 36415; 71045; 80053; 82550; 82553; 83690; 84484; 85025; 85610; 93005; 96374; 99284; J3490